=== PATIENT | female | born 1970 | race American Indian/Alaskan Native ===

== ENCOUNTER 2016-09-26 17:44 | Emergency (ER) | payer SELFPAY ==
[2016-09-26] MEDS ORDERED: XYLOCAINE 2% INFILTRATI ONE ×2 (19:35→19:47)
[2016-09-26] MEDS ORDERED: TENIVAC IM ONE (19:46)
[2016-09-26] MEDS ORDERED: ANCEF IM ONE (19:47)
--- NOTE | 2016-09-26 19:48 | Emergency Department Report ---
ED Laceration HPI - HPI Chief Complaint: Extremity Injury, Upper Stated Complaint: LT TWO FINGERS LACERATION Time Seen by Provider: 09/26/16 19:44 Occurred When: Today Location: Upper Extremity Severity: mild Tetanus Status: Not up to Date Laceration Symptoms: Yes Pain, No Foreign Body Sensation, No Numbness, No Weakness ED Review of Systems ROS: Stated complaint: LT TWO FINGERS LACERATION Other details as noted in HPI Comment: All other systems reviewed and negative Constitutional: no symptoms reported, see HPI Eyes: as per HPI ENT: as per HPI Respiratory: no symptoms reported, see HPI Cardiovascular: as per HPI Endocrine: no symptoms reported, see HPI Gastrointestinal: as per HPI Genitourinary: as per HPI Musculoskeletal: as per HPI Skin: as per HPI, lesions (lac) Neurological: as per HPI Psychiatric: as per HPI Hematological/Lymphatic: as per HPI ED Past Medical Hx - Past Medical History Previous Medical History?: Yes Hx Hypertension: Yes (off meds) - Surgical History Past Surgical History?: Yes Additional Surgical History: Partial hysterectomy, Umbilical hernia repair - Social History Smoking Status: Never Smoker Substance Use Type: Alcohol, Non Opiate Pain, Prescribed - Medications Home Medications: Home Medications Medication Instructions Recorded Confirmed Last Taken Type Cephalexin [Keflex] 500 mg PO Q12HR #20 cap 09/26/16 Unknown Rx Laceration Physical Exam - Exam General: Vital signs noted. No distress. Alert and acting appropriately. Wound Length (cm): 2 Laceration Location: Upper Extremity Laceration Exam: Yes Normal Distal CMS, No Foreign Body, No Exposed Tendon, Vessel, or Nerve, No Tendon Injury ED Course Vital Signs 09/26/16 17:53 Temperature 98.7 F Pulse Rate 86 Respiratory 20 Rate Blood Pressure 148/102 O2 Sat by Pulse 99 Oximetry - Laceration /Wound Repair middle finger Wound Location: upper extremity (middle finger) Wound Length (cm): 2 Wound's Depth, Shape: flap, stellate, contused tissue Wound Explored: clean Irrigated w/ Saline (ccs): 20 Betadine Prep?: Yes Anesthesia: 1% Lidocaine Volume Anesthetic (ccs): 1 Wound Debrided: minimal Wound Repaired With: sutures Suture Size/Type: 5:0 Number of Sutures: 3 Layer Closure?: No Sterile Dressing Applied?: Yes Progress: tolerated well ring finger l Wound Location: upper extremity Wound Length (cm): 2 Wound Explored: clean Irrigated w/ Saline (ccs): 20 Betadine Prep?: Yes Anesthesia: 1% Lidocaine Volume Anesthetic (ccs): 1 Wound Debrided: minimal Wound Repaired With: sutures Suture Size/Type: 5:0 Number of Sutures: 3 Layer Closure?: No Sterile Dressing Applied?: Yes Progress: well tolerated Critical care attestation.: If time is entered above; I have spent that time in minutes in the direct care of this critically ill patient, excluding procedure time. ED Disposition Clinical Impression: Laceration Disposition: DC-01 TO HOME OR SELFCARE Is pt being admited?: No Does the pt Need Aspirin: No Condition: Stable Instructions: Suture Care (ED), Laceration (ED) Prescriptions: Cephalexin [Keflex] 500 mg PO Q12HR #20 cap Referrals: PRIMARY CARE, [Primary Care Provider] - 3-5 Days Forms: Work/School Release Form(ED) Time of Disposition: 20:52
[2016-09-26] MEDS ORDERED: BOOSTRIX IM ONE (19:49)
[2016-09-26] MEDS ORDERED: MOTRIN PO ONE (19:55)
[2016-09-26 21:12] VITALS: BP 146/97
== END 2016-09-26 21:10 | disposition home or self-care (01) ==
LOC: ED 17:44
DX: S61.212A Laceration without foreign body of right middle finger without damage to nail, initial encounter (principal); S61.214A Laceration without foreign body of right ring finger without damage to nail, initial encounter; W45.8XXA Other foreign body or object entering through skin, initial encounter; Y93.9 Activity, unspecified; Y92.9 Unspecified place or not applicable; Y99.9 Unspecified external cause status
CPT/HCPCS: 12001; 12041; 90471; 90715; 96372; 99282; J0690

== ENCOUNTER 2020-12-15 10:58 | Outpatient (CLI) | payer OTHER ==
--- NOTE | 2020-12-15 17:26 | Mammography Report ---
DIGITAL SCREENING MAMMOGRAM WITH CAD, 12/15/2020 CLINICAL INFORMATION / INDICATION: Routine screening mammography. TECHNIQUE: Digital bilateral 2D mammography was obtained in the craniocaudal and mediolateral obliqu e projections. This examination was interpreted with the benefit of Computer-Aided Detection analysis . COMPARISON: None. The patient does not remember where prior mammograms were performed. FINDINGS: Breast Density: There are scattered areas of fibroglandular density. No dominant mass, suspicious calcifications, or architectural distortion in either breast. IMPRESSION: No mammographic evidence of malignancy. Follow up recommendation: Routine yearly BI-RADS Category 1: Negative. A "normal" or negative report should not discourage follow up or biopsy of a clinically significant f inding. A written summary of these findings will be mailed to the patient. The patient will be entered into a mammography reporting system which will generate a reminder letter for the patient's next appointmen t at the appropriate interval. The [employer] recommends yearly mammograms starting at age 40 and continuing as l sharad as a woman is in good health. Breast MRI is recommended for women with an approximate 20-25% or greater lifetime risk of breast cancer, including women with a strong family history of breast or ova taurus cancer or who have been treated for Hodgkin's disease. Signer Name: Zoë Brown MD Signed: 12/15/2020 5:22 PM Workstation Name: [email or web address]
== END 2020-12-15 10:59 | disposition home or self-care (01) ==
LOC: MAMMO 10:58
PROVIDERS: ATTEND Family Medicine
DX: Z12.31 Encounter for screening mammogram for malignant neoplasm of breast (principal)
CPT/HCPCS: 77067